=== PATIENT | male | born 1995 | race Hispanic/Latino ===

== ENCOUNTER 2019-01-02 14:49 | Emergency (ER) | payer SELFPAY ==
[2019-01-02] MEDS ORDERED: NACL 0.9% 1000 ML 2,000 ML IV ONE (15:21)
--- NOTE | 2019-01-02 15:22 | Emergency Department Report ---
ED General Adult HPI - General Chief complaint: Seizure Stated complaint: SEIZURE Time Seen by Provider: 01/02/19 15:07 Source: patient, EMS, RN notes reviewed Mode of arrival: Stretcher Limitations: Other (patient cannot recall what happened.) - History of Present Illness Initial comments: This is a 23-year-old gentleman. Patient is not known to this provider previously. He follows with the [facility]. He denies chronic medical conditions. He is brought to the hospital by EMS. As per EMS documentation, the patient had a seizure that lasted approximately 1 minute. The patient was stated to have had a convulsive type seizure. Apparently, he then regained consciousness and vomited 1. Upon arrival to the emergency room, the patient denies headache, neck pain, chest pain, abdominal pain or shortness of breath. He has lower back pain where he thinks he fell. He thinks that he passed out but he is not sure. To his recollection, this is never happened to him. The patient denies DVT, pulmonary embolus risk factors. He endorses intermittent recreational consumption of cannabis, but this has not occurred within the past few weeks. He denies headache, neck pain, chest pain, abdominal pain, shortness of breath, extremity weakness, numbness. -: Sudden Severity scale (0 -10): 0 Consistency: now resolved Improves with: none Worsens with: none Associated Symptoms: confusion, seizure, syncope - Related Data Previous Rx's Medication Instructions Recorded Last Taken Type Albuterol Sulfate [Proair 90 mcg IH Q4HR PRN #2 aer.[email or web address] 01/02/19 Unknown Rx Respiclick] Azithromycin [Zithromax Z-DEBBIE] 250 mg PO QDAY #6 tablet 01/02/19 Unknown Rx Allergies Allergy/AdvReac Type Severity Reaction Status Date / Time No Known Allergies Allergy Verified 01/02/19 14:59 ED Review of Systems ROS: Stated complaint: SEIZURE Other details as noted in HPI Constitutional: denies: fever Eyes: denies: vision change ENT: denies: epistaxis Cardiovascular: syncope. denies: chest pain Gastrointestinal: denies: abdominal pain, nausea, vomiting Genitourinary: denies: dysuria Musculoskeletal: back pain Neurological: confusion, other (questionable seizure) ED Past Medical Hx - Past Medical History Previous Medical History?: No - Surgical History Past Surgical History?: No - Social History Smoking Status: Unknown if ever smoked - Medications Home Medications: Home Medications Medication Instructions Recorded Confirmed Last Taken Type Albuterol Sulfate [Proair 90 mcg IH Q4HR PRN #2 [email or web address] 01/02/19 Unknown Rx Respiclick] Azithromycin [Zithromax Z-DEBBIE] 250 mg PO QDAY #6 tablet 01/02/19 Unknown Rx ED Physical Exam - General Limitations: No Limitations General appearance: alert, in no apparent distress - Head Head exam: Present: atraumatic, normocephalic - Eye Eye exam: Present: normal appearance, PERRL, EOMI, other (visual acuity intact to finger counting, color perception, reading at a close distance). Absent: nystagmus - ENT ENT exam: Present: normal exam, normal orophraynx, mucous membranes moist, normal external ear exam - Neck Neck exam: Present: normal inspection, full ROM. Absent: tenderness, meningismus - Respiratory Respiratory exam: Present: normal lung sounds bilaterally. Absent: respiratory distress - Cardiovascular Cardiovascular Exam: Present: normal rhythm, tachycardia, normal heart sounds. Absent: systolic murmur, diastolic murmur, rubs, gallop - GI/Abdominal GI/Abdominal exam: Present: soft. Absent: distended, tenderness, guarding, rebound, rigid, pulsatile mass - Rectal Rectal exam: Present: deferred - Extremities Exam Extremities exam: Present: normal inspection, full ROM, other (2+ pulses noted in the bilateral upper, lower extremities. Compartments soft. No long bony tenderness. The pelvis is stable.). Absent: pedal edema, joint swelling, calf tenderness - Back Exam Back exam: Present: normal inspection, full ROM. Absent: tenderness, CVA tenderness (R), paraspinal tenderness, vertebral tenderness - Neurological Exam Neurological exam: Present: alert, oriented X3, CN II-XII intact, normal gait, other (Extraocular movements intact. Tongue midline. No facial droop. Facial sensation intact to light touch in the V1, V2, V3 distribution bilaterally. 5 and 5 strength in 4 extremities.. Sensation is intact to light touch in 4 extremities.). Absent: motor sensory deficit - Psychiatric Psychiatric exam: Present: normal affect, normal mood - Skin Skin exam: Present: warm, dry, intact, normal color. Absent: rash ED Course Vital Signs 01/02/19 01/02/19 15:00 17:47 Temperature 97.8 F 98.6 F Pulse Rate 106 H 86 Respiratory 16 14 Rate Blood Pressure 110/62 Blood Pressure 139/67 [Right] O2 Sat by Pulse 96 98 Oximetry - Reevaluation(s) Reevaluation #1: 01/02/19 16:33 Differential diagnosis, including but not limited to: Orthostasis, vagal event, structural cardiac disease, structural intracranial disease, seizure, pseudoseizure, pulmonary embolus, dehydration Assessment and plan: 23-year-old male with reported episode of seizure, patient basically passed out, he reports that he is healthy with no chronic medical conditions. The patient has a Mcallen Coma Scale of 15. His NIH score is 0. During his history and physical, he is noted to be intimately tachycardic, with a pulse ox of 89-98%. Screening laboratory studies have been sent. D-dimer comes back elevated, therefore CT scan of the chest has been ordered to exclude pulmonary embolus. Noncontrast CT scan of the brain has been obtained, appears to be unremarkable. Formal interpretation is pending. X-ray of the chest appears to be unremarkable. IV fluids ordered. We will discuss with the [facility] once his diagnostics have resulted. Reevaluation #2: 01/02/19 17:56 Patient is observed in the emergency room for almost 2.5 hours thus far. No additional convulsive events or syncopal events noted. Tachycardia resolved, hypoxia resolved. Please note that previously described episode of hypoxia was noted when the pulse oximeter was on the ipsilateral arm to the blood pressure cuff. Patient resting comfortably, and having a full conversation with family members. Urine toxicology screen demonstrates presence of benzodiazepines and cannabinoids. The patient is clinically sober at this time. He has a GCS of 15. We are awaiting CT scan interpretation of the chest at this time. Reevaluation #3: 01/02/19 17:58 Repeat EKG shows sinus, 95 bpm, borderline left axis deviation, borderline prolonged [place] interval, incomplete right bundle-branch block, not having chest pain, not consistent with ST elevation myocardial infarction, appears mostly unchanged compared to prior EKG, borderline left axis deviation may be due to l ead placement, incomplete right bundle-branch block may be due to lead placement, appears grossly unchanged from prior. Reevaluation #4: 01/02/19 18:45 Tachycardia resolved. Patient resting comfortably in the department for [address] scan of the chest shows no pulmonary embolus, question early pneumonia. Contacted [facility] coordinating physician, Dr. Zamora, who has agreed to have the patient be given expedited follow-up within the [facility] network, both with primary care, and with neurology. Clinically doubt pneumonia, but we will cover empirically with azithromycin. Discussed laboratory findings and EKG findings with the patient, counseled to avoid consumption of cannabis and benzodiazepines. He will be discharged at this time, return precautions are reviewed. ED Medical Decision Making - Lab Data Result diagrams: 01/02/19 15:42 01/02/19 15:42 Vital Signs 01/02/19 15:00 Temperature 97.8 F Pulse Rate 106 H Respiratory 16 Rate Blood Pressure 110/62 O2 Sat by Pulse 96 Oximetry Lab Results 01/02/19 01/02/19 01/02/19 Range/Units 15:42 15:42 15:42 WBC 13.6 H (4.5-11.0) K/mm3 RBC 4.96 (3.65-5.03) M/mm3 Hgb 15.9 H (11.8-15.2) gm/dl Hct 45.1 (35.5-45.6) % MCV 91 (84-94) fl MCH 32 (28-32) pg MCHC 35 H (32-34) % RDW 12.6 L (13.2-15.2) % Plt Count 269 (140-440) K/mm3 PT 13.4 (12.2-14.9) Sec. INR 0.96 (0.87-1.13) APTT 20.0 L (24.2-36.6) Sec. D-Dimer 236.09 H (0-234) ng/mlDDU Sodium 142 (137-145) mmol/L Potassium 4.0 (3.6-5.0) mmol/L Chloride 100.7 (98-107) mmol/L Carbon Dioxide 26 (22-30) mmol/L Anion Gap 19 mmol/L BUN 12 (9-20) mg/dL Creatinine 1.1 (0.8-1.5) mg/dL Estimated GFR > 60 ml/min BUN/Creatinine Ratio 11 % Glucose 150 H (75-100) mg/dL Calcium 9.1 (8.4-10.2) mg/dL Magnesium (1.7-2.3) mg/dL Total Creatine Kinase (55-170) units/L Salicylates (2.8-20.0) mg/dL Acetaminophen (10.0-30.0) ug/mL Plasma/Serum Alcohol (0-0.07) % 01/02/19 01/02/19 01/02/19 Range/Units 15:42 15:42 15:42 WBC (4.5-11.0) K/mm3 RBC (3.65-5.03) M/mm3 Hgb (11.8-15.2) gm/dl Hct (35.5-45.6) % MCV (84-94) fl MCH (28-32) pg MCHC (32-34) % RDW (13.2-15.2) % Plt Count (140-440) K/mm3 PT (12.2-14.9) Sec. INR (0.87-1.13) APTT (24.2-36.6) Sec. D-Dimer (0-234) ng/mlDDU Sodium (137-145) mmol/L Potassium (3.6-5.0) mmol/L Chloride (98-107) mmol/L Carbon Dioxide (22-30) mmol/L Anion Gap mmol/L BUN (9-20) mg/dL Creatinine (0.8-1.5) mg/dL Estimated GFR ml/min BUN/Creatinine Ratio % Glucose (75-100) mg/dL Calcium (8.4-10.2) mg/dL Magnesium 2.70 H (1.7-2.3) mg/dL Total Creatine Kinase 187 H (55-170) units/L Salicylates < 0.3 L (2.8-20.0) mg/dL Acetaminophen < 5.0 L (10.0-30.0) ug/mL Plasma/Serum Alcohol (0-0.07) % 01/02/19 Range/Units 15:42 WBC (4.5-11.0) K/mm3 RBC (3.65-5.03) M/mm3 Hgb (11.8-15.2) gm/dl Hct (35.5-45.6) % MCV (84-94) fl MCH (28-32) pg MCHC (32-34) % RDW (13.2-15.2) % Plt Count (140-440) K/mm3 PT (12.2-14.9) Sec. INR (0.87-1.13) APTT (24.2-36.6) Sec. D-Dimer (0-234) ng/mlDDU Sodium (137-145) mmol/L Potassium (3.6-5.0) mmol/L Chloride (98-107) mmol/L Carbon Dioxide (22-30) mmol/L Anion Gap mmol/L BUN (9-20) mg/dL Creatinine (0.8-1.5) mg/dL Estimated GFR ml/min BUN/Creatinine Ratio % Glucose (75-100) mg/dL Calcium (8.4-10.2) mg/dL Magnesium (1.7-2.3) mg/dL Total Creatine Kinase (55-170) units/L Salicylates (2.8-20.0) mg/dL Acetaminophen (10.0-30.0) ug/mL Plasma/Serum Alcohol < 0.01 (0-0.07) % - EKG Data -: EKG Interpreted by Me EKG shows normal: sinus rhythm, axis, intervals, QRS complexes, ST-T waves - EKG Data When compared to previous EKG there are: previous EKG unavailable Interpretation: normal EKG - Radiology Data Radiology results: pending, image reviewed interpreted by me: X-ray the chest appears to be unremarkable and within normal limits. Critical care attestation.: If time is entered above; I have spent that time in minutes in the direct care of this critically ill patient, excluding procedure time. ED Disposition Clinical Impression: History of convulsions Disposition: DC- TO HOME OR SELFCARE Is pt being admited?: No Does the pt Need Aspirin: No Condition: Good Additional Instructions: Do not drive or operate motor vehicles for the next 6 months, unless cleared by either your primary care doctor, neurology doctor, or tax specialist. The patient has an appointment tomorrow, January 04, 1120 in the morning, with Dr. Chung, at the [facility]. The [facility] will call back tomorrow for a neurology appointment. Please drink 4-6 cups of water per day, and eat 3-4 meals per day. Avoid consumption of cannabis, marijuana, benzodiazepines, Xanax, Ativan, recreational drugs. [facility] has indicated that they will have the patient contacted to arrange close outpatient follow-up with both neurology and primary care. Alternatively, the patient may follow-up with any other of the listed neurology specialists, preferably within the next 7-10 days. Local neurology specialists including Jorge Alberto Huynh Local cardiology practices include [facility] cardiology, patient should follow-up with the primary care doctor or tax specialist for the incidental abnormal EKG in within the next week. Please return to the emergency room right away with new pain, worsening pain, migration of pain, projectile vomiting, change in mental status, confusion, new, worsening or different symptoms. Prescriptions: Albuterol Sulfate [Proair Respiclick] 90 mcg IH Q4HR PRN #2 aer.[email or web address] PRN Reason: Wheezing Azithromycin [Zithromax Z-DEBBIE] 250 mg PO QDAY #6 tablet [facility] [Referring] - 3-5 Days GEMMA ZEPEDA MD [Referring] - 3-5 Days SHEILA DOMINGUEZ MD [Staff Physician] - 3-5 Days [facility] [Provider Group] - 3-5 Days
[2019-01-02 16:01] LABS: Hematocrit 45.1 % (35.5-45.6); Hemoglobin 15.9 gm/dl (11.8-15.2); Mean Corpuscular HGB Conc 35 % (32-34); Mean Corpuscular Volume 91 fl (84-94); Platelet Count 269 K/mm3 (140-440); Red Blood Count 4.96 M/mm3 (3.65-5.03); Red Cell Distribution Width 12.6 % (13.2-15.2)
[2019-01-02 16:14] LABS: INR 0.96 (0.87-1.13)
[2019-01-02 16:31] LABS: BUN/Creatinine Ratio 11; Blood Urea Nitrogen 12 mg/dL (9-20); Calcium 9.1 mg/dL (8.4-10.2); Hemolysis Index 2
--- NOTE | 2019-01-02 16:31 | Cat Scan Report ---
PROCEDURE: CT head without contrast. TECHNIQUE: Computerized tomography of the head was performed without contrast material. CT DOSE LENGTH PRODUCT: 920.48 mGycm HISTORY: Seizure versus syncope. COMPARISONS: None. FINDINGS: The ventricles are normal in size. The jaeger matter and white matter appear normal. There are no mass lesions. There is no intracranial hemorrhage. The calvarium appears intact. The mastoid air cells and visualized paranasal sinuses are well aerated. IMPRESSION: Normal study. This document is electronically signed by Farhad Proctor MD., January 02 2019 04:29:20 PM ET
[2019-01-02 16:43] LABS: Bacteria,Urine 1+ /HPF (Negative); Bilirubin,Urine NEG (Negative); Blood,Urine MOD (Negative); Color,Urine Yellow (Yellow); Mucus,Urine 2+ /HPF; Urobilinogen,Urine < 2.0 mg/dL (<2.0)
[2019-01-02 16:49] LABS: Amphetamine Screen,Urine PRESUMPTIVE NEGATIVE; Cocaine Screen,Urine PRESUMPTIVE NEGATIVE; Methadone Screen,Urine PRESUMPTIVE NEGATIVE; Opiate Screen,Urine PRESUMPTIVE NEGATIVE
[2019-01-02 17:49] LABS: Benzodiazepines Screen,Urine PRESUMPTIVE POSITIVE; Cannabinoid Screen,Urine PRESUMPTIVE POSITIVE
--- NOTE | 2019-01-02 18:12 | XRay Report ---
PROCEDURE: XR CHEST 1V AP TECHNIQUE: Single AP view of the chest HISTORY: syncope, hypoxia, tachycardia. COMPARISONS: None available FINDINGS: Cardiomediastinal silhouette is unremarkable. No pulmonary infiltrates. No effusion or pneumothorax. No focal osseous lesion. IMPRESSION: No radiographic evidence of acute abnormality. This document is electronically signed by Deedee Escamilla MD., January 02 2019 06:10:12 PM ET
--- NOTE | 2019-01-02 18:42 | Cat Scan Report ---
PROCEDURE: CT ANGIO CHEST TECHNIQUE: Computerized tomographic angiography of the chest was performed after the IV injection of iodinated nonionic contrast including image processing. The image data was postprocessed using 2-di mensional multiplanar reformatted (MPR) and 3-dimensional (MIP and/or volume rendered) techniques. Au tomated exposure control, adjustment of mA and/or kV according to patient size, or iterative reconstr uction dose optimization techniques were utilized. CT DOSE LENGTH PRODUCT: 966.13 mGycm HISTORY: tachycardia, hypoxia, unexplained syncope COMPARISONS: None. FINDINGS: The trachea and central bronchi appear normal. There are small scattered areas of consolidation in alicia th lower lobes. This could represent very early pneumonia. There are no pleural effusions. The thorac ic aorta has a normal caliber without evidence of dissection. The pulmonary arteries enhance normally . There are no filling defects to indicate pulmonary embolism. There is no mediastinal adenopathy. Th e heart size is normal. The adrenal glands are not enlarged. The thoracic skeleton appears intact. IMPRESSION: Question early pneumonia. No evidence of pulmonary embolism. This document is electronically signed by Farhad Proctor MD., January 02 2019 06:40:36 PM ET
[2019-01-02 23:35] VITALS: BP 149/84
== END 2019-01-02 20:45 | disposition home or self-care (01) ==
LOC: ED 14:49
DX: R56.9 Unspecified convulsions (principal); R11.10 Vomiting, unspecified; M54.5 Low back pain
CPT/HCPCS: 36415; 70450; 71045; 71275; 80048; 80307; 81001; 82550; 83735; 84443; 85027; 85379; 85610; 85730; 93005; 93010; 96360; 96361; 99285; G0480; J7030; Q9967; 80320